=== PATIENT | female | born 1995 | race Caucasian/White ===

== ENCOUNTER 2016-07-08 01:55 | Emergency (ER) | payer BC ==
[~2016-07-08] VITALS: Ht 157.5 cm; Wt 82.5 kg
[2016-07-08] MEDS ORDERED: NUVARING VAGIN1 EACH VAG (02:13)
[2016-07-08] MEDS ORDERED: PROTONIX40 MG PO (02:14)
== END 2016-07-08 03:55 | disposition short-term general hospital (02) ==
LOC: ER 01:55
DX: K52.9 Noninfective gastroenteritis and colitis, unspecified (principal)
CPT/HCPCS: J2405